=== PATIENT | male | born 1970 ===

== ENCOUNTER 2017-09-17 18:48 | Emergency (ER) | payer OTHER ==
[2017-09-17 19:02] VITALS: TEMP 98
--- NOTE | 2017-09-17 19:59 | ED PDOC ---
HPI: Back Time Seen by Provider: 09/17/17 19:25 Chief Complaint (Nursing): Back Pain Chief Complaint (Provider): Back Pain History Per: Patient History/Exam Limitations: no limitations Onset/Duration Of Symptoms: Days (x2 weeks) Additional Complaint(s): 47 y/o male presents to the ED complaining of right upper back pain in the parascapular area rated 6/10 x 2 weeks. Pain is constant and is not worsened with exercise or any activity. Patient states taking Aleve few times a week once a day with some relief. Denies injuries, SOB or any further medical complaints. Past Medical History Reviewed: Historical Data, Nursing Documentation, Vital Signs Vital Signs: Last Vital Signs Temp 98.0 F 09/17/17 19:01 Pulse 81 09/17/17 19:01 Resp 16 09/17/17 19:01 BP 161/96 H 09/17/17 19:01 Pulse Ox 100 09/17/17 19:01 - Surgical History Surgical History: No Surg Hx - Family History Family History: States: Unknown Family Hx - Social History Current smoker - smoking cessation education provided: No Alcohol: Occasional Drugs: Denies - Home Medications Home Medications: Ambulatory Orders Medication Instructions Recorded Cyclobenzaprine [Cyclobenzaprine 10 mg PO TID #30 tab 09/17/17 HCl] - Allergies Allergies/Adverse Reactions: Allergies Allergy/AdvReac Type Severity Reaction Status Date / Time No Known Allergies Allergy Verified 09/17/17 19:00 Review of Systems ROS Statement: Except As Marked, All Systems Reviewed And Found Negative (As per HPI, otherwise negative) Constitutional: Negative for: Other (Any injuries) Respiratory: Negative for: Shortness of Breath Musculoskeletal: Positive for: Back Pain (Localized right upper back pain) Physical Exam - Reviewed Nursing Documentation Reviewed: Yes Vital Signs Reviewed: Yes - Physical Exam Appears: Positive for: Well, Non-toxic, No Acute Distress Head Exam: Positive for: ATRAUMATIC, NORMAL INSPECTION, NORMOCEPHALIC Skin: Positive for: Normal Color, Warm, Dry Eye Exam: Positive for: Normal appearance ENT: Positive for: Normal ENT Inspection Neck: Positive for: Normal, Painless ROM, Supple Cardiovascular/Chest: Positive for: Regular Rate, Rhythm. Negative for: Murmur Respiratory: Positive for: Normal Breath Sounds. Negative for: Accessory Muscle Use, Respiratory Distress Gastrointestinal/Abdominal: Positive for: Normal Exam, Bowel Sounds, Soft. Negative for: Tenderness Back: Positive for: Other (Localized pain in upper right thoracic area that is not worsened with exercise or activity) Extremity: Positive for: Normal ROM. Negative for: Deformity Neurologic/Psych: Positive for: Alert, Oriented (x3) - ECG ECG Rhythm: Positive for: Sinus Rhythm (Normal access - 82) O2 Sat by Pulse Oximetry: 100 (RA) Pulse Ox Interpretation: Normal Medical Decision Making Medical Decision Making: Time: 19:49 Initial Impression: Musculoskeletal pain Plan: EKG Chest x-ray Spine thoracolumbar min 2 view Scribe Attestation: Documented by Freda Montemayor acting as a scribe for Minoo Carlson MD. Scribe Attestation: All medical record entries made by the Scribe were at my direction and personally dictated by me. I have reviewed the chart and agree that the record accurately reflects my personal performance of the history, physical exam, medical decision making, and the department course for this patient. I have also personally directed, reviewed, and agree with the discharge instructions and disposition. 2200: patient has been stable. Chest x-ray and spine x-rays does not reveal acute pathology Disposition - Clinical Impression Clinical Impression: Musculoskeletal disorder - Patient ED Disposition Is Patient to be Admitted: No Doctor Will See Patient In The: Office Counseled Patient/Family Regarding: Diagnosis, Need For Followup - Disposition Referrals: [facility] [Outside] [facility] [Outside] Disposition: Routine/Home Disposition Time: 22:10 Condition: STABLE Prescriptions: Cyclobenzaprine [Cyclobenzaprine HCl] 10 mg PO TID #30 tab Instructions: Musculoskeletal Pain (ED) Forms: [facility] ([place]occan) - POA Present On Arrival: None
[2017-09-17 22:30] VITALS: BP 149/88; PULSE 83; RESP 17; O2SAT 98
--- NOTE | 2017-09-18 09:19 | RAD ---
HISTORY: right back pain for 2 weeks COMPARISON: No prior. TECHNIQUE: Chest PA and lateral FINDINGS: LUNGS: No active pulmonary disease. PLEURA: No significant pleural effusion identified. No pneumothorax apparent. CARDIOVASCULAR: Normal. OSSEOUS STRUCTURES: Mild degenerative changes are seen in the thoracic spine with mild scoliosis but no compression fracture. VISUALIZED UPPER ABDOMEN: Normal. OTHER FINDINGS: Trachea is midline. Aorta is normal in size. IMPRESSION: No active disease.
--- NOTE | 2017-09-18 09:20 | RAD ---
HISTORY: right parascapular pain x 2 weeks COMPARISON: No prior. FINDINGS: BONES: Frontal and lateral views of the thoracic spine were performed. Scoliosis is appreciated. No pedicle fractures are seen. No compression fracture is noted. Mild degenerative disc disease is seen. No paraspinal masses are identified. Posterior ribs appear grossly intact. DISC SPACES: See above SOFT TISSUES: See above OTHER FINDINGS: Visualized lungs are clear. IMPRESSION: No appreciable fracture. Scoliosis. Mild degenerative disc disease. If symptoms persist MRI would be suggested.
--- NOTE | 2017-09-18 12:15 | CARD ---
APPROVED REPORT EKG Measurement Heart [id number] <Conclusion> Normal sinus rhythm Normal ECG
== END 2017-09-17 22:17 | disposition home or self-care (01) ==
LOC: H.ER 18:48
DX: M41.9 Scoliosis, unspecified (principal); R07.89 Other chest pain